=== PATIENT | female | born 1965 | race Two or more races ===

== ENCOUNTER 2016-09-13 08:13 | Day surgery (SDC) | payer OTHER ==
[~2016-09-13] VITALS: Ht 154.9 cm; Wt 72.4 kg
[2016-09-13 09:26] VITALS: Ht 154.9 cm; Wt 72.4 kg
[2016-09-13] MEDS ORDERED: OMEPRAZOLE (09:32)
[2016-09-13 09:53] VITALS: BP 169/80; PULSE 93; RESP 19
[2016-09-13 10:52] VITALS: BP 146/64; PULSE 85; RESP 28
[2016-09-13] MEDS ORDERED: MIDAZOLAM 1 MG/ML 2 ML INJ ONE ×3 (10:56)
[2016-09-13] MEDS ORDERED: FENTAnyl 50 MCG/ML VIAL ONE (10:56)
--- NOTE | 2016-09-13 11:25 | GILP ---
DATE OF PROCEDURE: 09/13/2016 NAME OF PROCEDURES: 1. Colonoscopy and polypectomy. 2. Clipping of the polypectomy site. INDICATION FOR THE PROCEDURE: Ms. Sepideh Calles is a 51-year-old female patient who was scheduled for screening colonoscopy. The procedure and possible complications are well explained to the patient. The patient understood and consented to the procedure. DESCRIPTION OF PROCEDURE: Under the influence of fentanyl and Versed, the colonoscope was carefully introduced in the rectum and under direct vision, it was advanced all the way to the cecum. FINDINGS: The patient had a large polyp in the sigmoid colon at 35 cm from the anus and it was mamadou adarsh using the snare and electrocautery. The patient had a very thick stalk, so clipping of the poly pectomy site was done to prevent bleeding. The patient was noted to have diverticulosis of the colo n. She also had internal hemorrhoids. She tolerated the procedure very well and there was no complication from the procedure. At the end of the procedure, she was awake with stable vital signs and she was discharged home to the care of h er family. IMPRESSION: 1. Colonoscopy all the way to the cecum. 2. Large sigmoid colon polyp at 35 cm from the anus was removed using the snare and electrocautery. 3. The patient had a very thick stalk and clipping of the polypectomy site was done to prevent blee ding. 4. Diverticulosis of the colon. 5. Internal hemorrhoids. PLAN: 1. Await histopathology report. 2. The patient will need followup colonoscopy in 3 years. Dictated By: WILMER LEYVA MD GD/AMANDA Conf#: [id number] DID#: [id number] CC: WILMER LEYVA MD;*EndCC*
[2016-09-13 11:31] VITALS: BP 110/61; PULSE 66; RESP 16
== END 2016-09-13 12:16 | disposition home or self-care (01) ==
LOC: GIL 08:13
PROVIDERS: ATTEND Internal Medicine Gastroenterology
DX: Z12.11 Encounter for screening for malignant neoplasm of colon (principal); C18.7 Malignant neoplasm of sigmoid colon; K57.90 Diverticulosis of intestine, part unspecified, without perforation or abscess without bleeding; K64.8 Other hemorrhoids
CPT/HCPCS: 45385; J2250; J3010; Z7610; 88305

== ENCOUNTER 2017-02-09 08:03 | Day surgery (SDC) | payer OTHER ==
[~2017-02-09] VITALS: Ht 154.9 cm; Wt 70.9 kg
[~2017-02-09 08:03] MED LIST: OMEPRAZOLE
[2017-02-09 09:00] VITALS: Ht 154.9 cm; Wt 70.9 kg
[2017-02-09 09:16] VITALS: BP 137/71; PULSE 87; RESP 16
[2017-02-09] MEDS ORDERED: FENTAnyl 50 MCG/ML VIAL ONE (10:18)
[2017-02-09] MEDS ORDERED: MIDAZOLAM 1 MG/ML 2 ML INJ ONE ×3 (10:18→10:24)
[2017-02-09 10:29] VITALS: BP 99/60; RESP 20
--- NOTE | 2017-02-09 16:18 | GILP ---
DATE OF PROCEDURE: 02/09/2017 NAME OF PROCEDURES: 1. Esophagogastroduodenoscopy and biopsy. 2. Colonoscopy and biopsy. SURGEON: Wilmer Leyva MD PREOPERATIVE DIAGNOSES: 1. Abdominal pain. 2. Screening colonoscopy. POSTOPERATIVE DIAGNOSES: 1. Hiatal hernia. 2. Gastroesophageal reflux disease. 3. Gastritis with erosions. 4. Gastric mucosal biopsies were taken for Helicobacter pylori test. 5. Colonoscopy all the way to the cecum. 6. Three small polyps, one in the cecum and right colon were removed using the biopsy forceps. 7. A cluster of polyps in the sigmoid colon were removed using the biopsy forceps. 7. Internal hemorrhoids. 8. Occasional diverticulosis of the colon. INDICATION FOR THE PROCEDURE: Ms. Sepideh Calles is a 51-year-old female patient who had upper abdominal pain, not responding to therapy. She also needed screening colonoscopy. The procedures and possible complications were well explained to the patient, she understood and consented to the procedure. DESCRIPTION OF PROCEDURE: Under the influence of fentanyl and Versed, the gastroscope was carefully introduced into the esophagus and under direct vision , it was advanced to the stomach and through the pylorus into the duodenal bulb and descending duodenum. FINDINGS: ESOPHAGUS: The mucosa was normal. STOMACH: The patient had gastritis with erosions. Gastric mucosal biopsies were taken for H. pylori test. DUODENUM: Normal. The colonoscope was carefully introduced in the rectum and under direct vision, it was advanced all the way to the cecum. FINDINGS: The patient had small polyps in the cecum and the right colon and they were removed using the biopsy forceps. The patient was also noted to have a cluster of polyps in the sigmoid colon and biopsies were taken for histopathology. She also had internal hemorrhoids. She tolerated the procedure very well and there was no complication from the procedures. At the end of the procedures, she was awake with stable vital signs and she was discharged home to the care of her family. IMPRESSION: Please see postoperative diagnoses. PLAN: 1. Omeprazole 40 mg p.o. q.a.m. 2. Zantac 300 mg p.o. at bedtime. 3. Await histopathology reports. 4. The timing for the next colonoscopy will be decided after reviewing the biopsy report. Dictated By: WILMER WOLFE/AMANDA Conf#: [id number] DID#: [id number] CC: WILMER LEYVA MD;*EndCC* MTDD
== END 2017-02-09 12:03 | disposition home or self-care (01) ==
LOC: GIL 08:03
PROVIDERS: ATTEND Internal Medicine Gastroenterology
DX: Z12.11 Encounter for screening for malignant neoplasm of colon (principal); D12.5 Benign neoplasm of sigmoid colon; K44.9 Diaphragmatic hernia without obstruction or gangrene; K29.60 Other gastritis without bleeding; K64.8 Other hemorrhoids; K57.90 Diverticulosis of intestine, part unspecified, without perforation or abscess without bleeding
CPT/HCPCS: 43239; 45380; 87081; 88305; J2250; J3010; Z7610